=== PATIENT | male | born 1955 | race Caucasian/White ===

== ENCOUNTER 2017-01-17 15:27 | Emergency (ER) | payer OTHER ==
[~2017-01-17 15:27] MED LIST: AMB10 PO; CELEXA20 PO; CELEXA40 MG PO; DIL4TAB PO; DURA100 TOP; HABIT21 TOP; KEPPRA500 PO; LOTE40 PO; MEDROLPAK4 PO; MSCONTIN PO; MULTIVITAMI1 PO; NICODERM C21 MG/241 TOP; PERCOCET1 TA4 PO; REMERON45 MG PO; ROXICODONE15 MG PO; ROXICODONE30 MG PO; V5 PO; X5 PO; XANAX PO; XANAX XR2 MG PO; XANAX1 MG PO
== END 2017-01-17 16:00 | disposition home or self-care (01) ==
LOC: ER 15:27
DX: M54.5 Low back pain (principal); F17.200 Nicotine dependence, unspecified, uncomplicated; Z79.899 Other long term (current) drug therapy
CPT/HCPCS: 96372; 99283